=== PATIENT | female | born 1975 | race Caucasian/White ===

== ENCOUNTER 2023-10-07 15:51 | Outpatient (REF) | payer OTHER, SELFPAY | END 2023-10-07 15:52 | disposition home or self-care (01) | LOC: HO.SH 15:51 | PROVIDERS: Visit Provider Internal Medicine | DX: Z01.118 Encounter for examination of ears and hearing with other abnormal findings (principal); H91.93 Unspecified hearing loss, bilateral | CPT/HCPCS: 92557 ==